=== PATIENT | female | born 1955 | race Caucasian/White ===

== ENCOUNTER 2022-05-22 07:48 | Day surgery (SDC) | payer MEDICARE, BC, SELFPAY ==
[2022-05-22] MEDS: ETHYL CHLORIDE 116 ML SPRAY 1 APPLIC TOPICAL (08:30)
[2022-05-22] MEDS: LACTATED RINGERS 1000 ML 1,000 ML 35 ML IV (08:30)
[2022-05-22] MEDS: SODIUM CHLORIDE 0.9 % (FLUSH) 10 ML SYRINGE IVF (08:30)
[2022-05-22 08:31] VITALS: BMI 41.3
[2022-05-22 08:34] VITALS: BP 131/80; PULSE 77; RESP 16; TEMP 36.1; O2SAT 96
[2022-05-22 08:50] LABS: Hemoglobin* 12.9 gm/dL (12.0-16.0)
[2022-05-22] MEDS: VASOPRESSIN 20 UNIT/ML INJ SUBCUT (10:27)
[2022-05-22] MEDS: KETOROLAC 15 MG/ML inj IVP (10:47)
[2022-05-22] MEDS: LIDOCAINE 1% 20 ML VIAL INJECTION (10:54)
[2022-05-22 11:07] VITALS: PULSE 78; RESP 16; TEMP 36.8; O2SAT 97
[2022-05-22 11:15] VITALS: BP 110/74; PULSE 67; RESP 16; O2SAT 94
[2022-05-22 11:30] VITALS: BP 118/69; PULSE 64; RESP 16; O2SAT 93
--- NOTE | 2022-05-22 11:30 | W.PM.GYNPROC ---
Procedure Note Date Seen: 05/22/22 Procedure Details: PREOPERATIVE DIAGNOSIS: Postmenopausal bleeding, suspected leiomyoma on recent ultrasound POSTOPERATIVE DIAGNOSIS: Postmenopausal bleeding, suspected leiomyoma on recent ultrasound PROCEDURE: Hysteroscopy, resection of submucous leiomyoma, resection of endometrial and endocervical polyps, dilation and curettage SURGEON: Gilma Salter MD ANESTHESIA: monitored anesthesia care IV FLUIDS: 700 mL crystalloid URINE OUTPUT: approximately 5 mL EBL: 20 mL SALINE DEFICIT: 545 mL FINDINGS: 1. Exam under anesthesia revealed a mobile, anteverted uterus without any palpable adnexal masses. 2. Upon hysteroscopy, survey of the cervix revealed a tiny polyp in the upper endocervix, which was removed. There were abundant tiny polyps in the lower part of the cervix that were not removed and appeared benign. There was a subcentimeter endometrial polyp near the left uterine cornua that was removed. There was a submucous fibroid in the right posterior mid uterine wall, approximately 2.5-3 cm in greatest dimension, FIGO Type 1. Endometrial stripe was otherwise thin in appearance. COMPLICATIONS:None PROCEDURE IN DETAIL: Patient was taken to the operating room with IV running. She was positioned in dorsal lithotomy position with her legs fully supported in Yellofin stirrups. Monitored anesthesia care was administered. She was prepped and draped in the usual sterile fashion. Exam under anesthesia was performed for the above-noted findings. Speculum was inserted. Cervix was injected along the anterior lip with a small amount of 1% lidocaine. Cervix was then grasped along the anterior lip with a single-tooth tenaculum. the cervix was injected with dilute vasopressin at 10, 2, 4, and 8 o'clock; Approximately 15 mL were used. Cervix was serially dilated to accommodate the TRUCLEAR hysteroscope, size to accomodate the larger dense tissue blade. This was assembled with saline inflow and outflow in place. The line was flushed of bubbles. The hysteroscope was advanced through the cervix into the endometrial cavity for the above noted findings. The dense tissue morcellator was then inserted through the operating channel. Window lock was performed. Under direct visualization, the submucous fibroid was removed. The endocervical polyp described above was also removed. The soft tissue mini blade was then used to circumferentially curette The endometrial cavity and remove the small endometrial polyp. The hysteroscope and morcellator were then removed from the uterus. Tenaculum was removed from the anterior lip of cervix. Hemostasis was observed for several minutes until bleeding was noted to be minimal. Patient tolerated procedure well. She was taken to recovery area in stable condition.
[2022-05-22 11:45] VITALS: BP 125/67; PULSE 60; RESP 16; O2SAT 94
[2022-05-22 12:00] VITALS: BP 118/70; PULSE 59; RESP 16; O2SAT 94
--- NOTE | 2022-05-22 13:09 | W.ANESCHARGE ---
Anesthesia Charges Start Date/Time Anesthesia Start Date: 05/22/22 Anesthesia Start Time: 09:54 Stop Date/Time Anesthesia Stop Date: 05/22/22 Anesthesia Stop Time: 11:08 Summary Emergency: No
--- NOTE | 2022-05-22 15:35 | W.ANESCHARGE ---
Anesthesia Charges Start Date/Time Anesthesia Start Date: 05/22/22 Anesthesia Start Time: 09:54 Stop Date/Time Anesthesia Stop Date: 05/22/22 Anesthesia Stop Time: 11:08 Summary Emergency: No
== END 2022-05-22 13:39 | disposition home or self-care (01) ==
PROVIDERS: PCP Family Medicine; Visit Provider Obstetrics & Gynecology
PROC: 0UDB8ZZ Extraction of Endometrium, Via Natural or Artificial Opening Endoscopic (ICD-10-PCS; CPT 58558; principal; 2022-05-22 09:30)
DX: N95.0 Postmenopausal bleeding (principal); D25.0 Submucous leiomyoma of uterus; N84.1 Polyp of cervix uteri
CPT/HCPCS: 58561; 00952; 36415; 82947; 85018; 86850; 86900; 86901; 88305; J1885; J2250; J2704; J3010; J7120

== ENCOUNTER 2023-01-29 06:06 | Day surgery (SDC) | payer MEDICARE, BC, SELFPAY ==
[2023-01-29 06:20] VITALS: BP 139/76; PULSE 83; RESP 16; TEMP 36; O2SAT 96
[2023-01-29 06:23] VITALS: BMI 42.3
[2023-01-29] MEDS: LACTATED RINGERS 1000 ML 1,000 ML 100 ML IV (06:35)
[2023-01-29] MEDS: SODIUM CHLORIDE 0.9 % (FLUSH) 10 ML SYRINGE IVF (06:35)
--- NOTE | 2023-01-29 06:49 | SUR.PREOP ---
HOME COVID NEGATIVE.
[2023-01-29 06:55] LABS: Hemoglobin* 12.9 gm/dL (12.0-16.0)
--- NOTE | 2023-01-29 07:06 | W.ANESCHARGE ---
Anesthesia Charges Start Date/Time Anesthesia Start Date: 01/29/23 Anesthesia Start Time: 07:23 Stop Date/Time Anesthesia Stop Date: 01/29/23 Anesthesia Stop Time: 08:08
[2023-01-29] MEDS: BUPIVACAINE 0.5% 30 ML INJECTION (07:54)
[2023-01-29 08:08] VITALS: BP 119/71; PULSE 86; RESP 12; TEMP 36.1; O2SAT 91
--- NOTE | 2023-01-29 08:08 | W.ANESCHARGE ---
Anesthesia Charges Start Date/Time Anesthesia Start Date: 01/29/23 Anesthesia Start Time: 07:23 Stop Date/Time Anesthesia Stop Date: 01/29/23 Anesthesia Stop Time: 08:08
[2023-01-29 08:15] VITALS: BP 128/78; PULSE 86; RESP 16; O2SAT 94
[2023-01-29 08:30] VITALS: BP 136/86; PULSE 75; RESP 16; O2SAT 93
[2023-01-29 08:45] VITALS: BP 125/68; PULSE 75; RESP 16; O2SAT 94
--- NOTE | 2023-01-29 13:33 | P.GYNPRC_ITS ---
Procedure Note Date Seen: 01/29/23 Procedure Details: Preop diagnosis: Postmenopausal bleeding Postop diagnosis: Postmenopausal bleeding Name of procedure: Hysteroscopy, dilation and curettage Surgeon: Daniel Duong Finish Saw Operator: None Complications: None EBL: 5mL Drains: None Findings: Cervix is flushed to vagina. Otherwise no gross lesion or abnormal discharge. Uterine sound 8cm. Intrauterine survey: posterior uterine structure that looks like a fibroid of about 3-4cm. Close to the right cornua there is a polypoid lesion. Visualization of the right cornua is impeded by what looks like an adhesion. Otherwise the endometrium looks atrophic w/o any other gross abnormalities. Dilation tract seen, evaluation of this extensively showed no evidence of perforation. Patient was taken to the OR were MAC anesthesia was administered without difficulty. She was placed in the dorsal lithotomy position with Herve type stirrups. Patient was then prepared and draped in the normal sterile fashion. A bivalved speculum was inserted in the posterior aspect of the vagina. 0.5% Marcaine was injected at 2 and 11 o'clock a total of about 8mL utilized. A single-tooth tenaculum was used to grasp the anterior lip of the cervix. The uterus was carefully sounded to 8 cm. The cervical os was sequentially dilated to accommodate the 5 mm TrueClear hysteroscope using Hegar dilators. A 5 mm 30 degree TrueClear hysteroscope was introduced under direct visualization, and the uterus was distended with normal saline. Findings as above. Soft tissue incisor blade from TrueClear hysteroscope system was introduced under direct visualization and endometrial curettings performed with removal of polypoid lesion. Hysteroscope removed under direct visualization. Sharp curettings also performed. Tenaculum was removed from the cervix and good hemostasis was noted at puncture sites. Patient tolerated the procedure well. Instrument and sponge counts were correct x2. The patient was awakened from MAC anesthesia and taken to the recovery room in a stable condition. The patient will go home after recovering from anesthesia and meeting all the criteria for discharge. She was given instruction regarding follow-up visit in 2 weeks at [facility] and instructions for pain medication. Fluid deficit: 650mL
== END 2023-01-29 08:56 | disposition home or self-care (01) ==
PROVIDERS: PCP Family Medicine; Visit Provider Obstetrics & Gynecology
PROC: 0UDB8ZZ Extraction of Endometrium, Via Natural or Artificial Opening Endoscopic (ICD-10-PCS; CPT 58558; principal; 2023-01-29 07:15)
DX: N95.0 Postmenopausal bleeding (principal)
CPT/HCPCS: 58558; 00952; 36415; 82962; 85018; 88305; J1885; J2250; J2405; J2704; J3010; J3490; J7120

== ENCOUNTER 2023-07-02 08:48 | Day surgery (SDC) | payer MEDICARE, BC, SELFPAY ==
[2023-07-02] VITALS (23 sets, daily range): BP systolic 108–153; BP diastolic 68–81; PULSE 79–91; RESP 12–16; TEMP 36.1–36.6; O2SAT 91–99; BMI 40.1
[2023-07-02] MEDS: LACTATED RINGERS 1000 ML 1,000 ML 100 ML IV ×3 (08:50→16:21)
[2023-07-02] MEDS: SODIUM CHLORIDE 0.9 % (FLUSH) 10 ML SYRINGE IVF (09:15)
[2023-07-02 09:24] LABS: Hemoglobin* 13.6 gm/dL (12.0-16.0)
[2023-07-02 09:37] LABS: Creatinine* 0.7 mg/dL (0.5-1.5); Est. Creatinine Clearance* 51.11; Estimated Glomerular Filt Rate 95 ml/min
[2023-07-02] MEDS: SCOPOLAMINE 1 MG/3 DAY PATCH 1 PATCH TRANSDERMA (11:14)
[2023-07-02] MEDS: CEFAZOLIN 1 GM inj 3 GM IVP (12:00)
[2023-07-02] MEDS: VASOPRESSIN 20 UNIT/ML INJ INJECTION (12:31)
--- NOTE | 2023-07-02 13:04 | W.ANESCHARGE ---
Anesthesia Charges Start Date/Time Anesthesia Start Date: 07/02/23 Anesthesia Start Time: 11:56 Stop Date/Time Anesthesia Stop Date: 07/02/23 Anesthesia Stop Time: 17:55
--- NOTE | 2023-07-02 13:12 | W.ANESCHARGE ---
Anesthesia Charges Start Date/Time Anesthesia Start Date: 07/02/23 Anesthesia Start Time: 11:56 Stop Date/Time Anesthesia Stop Date: 07/02/23
[2023-07-02] MEDS: BUPIVACAINE 0.25% 30 ML INJECTION (15:00)
--- NOTE | 2023-07-02 15:13 | PM.GSPRC ---
Operative Note Pre-op diagnosis: Abnormal uterine bleeding Post-op diagnosis: Same Type of Procedure: Intraoperative consultation Indications: I was asked for intraoperative consultation well the procedure was underway by Dr. Salter, please see her note for indications regarding the procedure an operative intervention. Procedure Description: When I entered the operating room ports were in place and the abdomen was insufflated. There were 2 small (2-5 mm) hemangiomas on the surface of the small bowel. These were not bleeding. They were not infiltrative on appearance with no concern for cancer. The abdomen was briefly surveyed with no other abnormal lesions identified. The omentum was normal in appearance. The liver was surveyed and free of concerning lesions. At this time I did not recommend biopsy of the lesions, as they were consistent with a benign hemangioma. No concern for malignancy at this time. Dr. Salter and Marquise then proceeded with the case and I left the operating room. They did take several pictures of the lesion for documentation. Findings: 2 small, nonbleeding hemangiomas on service of small bowel. Incidental finding. Anesthesia: GETA Surgeon: Randee Umanzor MD Estimated blood loss (mL): 0 Condition: stable Disposition: other (Operating room)
[2023-07-02] MEDS: CEFAZOLIN 2 GM INJ IVP (15:50)
--- NOTE | 2023-07-02 17:50 | P.GYNPRC_ITS ---
Procedure Note Date of procedure: 07/02/23 Pre-op diagnosis: Recurrent postmenopausal bleeding Post-op diagnosis: same Procedure: Total vaginal hysterectomy, laparoscopic bilateral salpingo-oophorectomy and closure of vaginal cuff. Intraoperative consult to general surgery for evaluation of small bowel lesions, evaluation of sigmoid colon/rectum integrity, cystoscopy. Anesthesia: regional (Converted to GETA for laparoscopy) Complications: None Surgeon: Daniel Duong MD floor covering printer assistant: Anahi Salter MD Estimated blood loss (mL): 400 Urine Output (mL): 100 Pathology: specimen obtained, sent to pathology Condition: stable Disposition: floor Findings: Bimanual exam: Small cervix flushed to vagina with descent to the mid vagina. Grossly normal uterus. Intra abdominal survey: Grossly normal fallopian tubes and ovaries. Small bowel with 2-3 lesions that looked like hemangiomas (see general surgery note for further description). Grossly normal diaphragm, liver, small intestine. Suture present at the bilateral pelvis sidewall from vaginal surgery. Separation of peritoneum exposing fatty tissue from the left perirectal space and an area closer to the rectum (these 2 areas were thoroughly evaluated by general surgery, please refer to this note for further details.) Procedure Description: Patient was taken to the operating room with IV running. She received cefazolin as preoperative prophylaxis. Spinal anesthesia obtained without difficulty. Patient was then placed in the dorsal lithotomy position with her legs fully supported in Yellow fin stirrups. She was prepped and draped in the usual sterile fashion. Iraheta catheter was inserted. Exam under anesthesia revealed the above-noted findings. Weighted speculum inserted to the posterior vagina as well as a Brenda retractor anteriorly and cervix identified. Cervix visualized and grasped along the anterior lip with a tenaculum. 1% plain lidocaine injected at the anterior cervix. The anterior and posterior lips of the cervix were grasped with thyroid Kin clamps. The cervicovaginal junction was infiltrated with a total of 30 mL of dilute vasopressin. Cervicovaginal junction was incised with the scalpel circumferentially. The vaginal epithelium was dissected off the uterosacral ligaments with a combination of blunt and sharp dissection bilaterally. Posterior colpotomy was performed sharply and a long weighted speculum was placed in the cul-de-sac. Dissection plane anteriorly was identified to be too deep into the uterine serosa and with reposition of an Allis clamp between the vagina mucosa and the uterine serosa the correct plane was then identified and grasped with pickups and the peritoneum opened with Metzenbaum scissors. A Brenda was then placed between the uterus and bladder. Bilateral uterosacral ligaments were clamped, cut, and suture ligated, and tagged for later identification. The cardinal and portion of the broad ligament bilaterally were clamped, cut, and suture ligated. Same procedure performed for the remainder of the broad ligament bilaterally. The bilateral cornual ends of the uterus were then isolated, clamped, cut and suture ligated. This freed the uterus from its attachments and it was delivered through the vagina. Deeper Trendelenburg position obtained a moist packing introduced vaginally but we were unable to identify fallopian tubes and ovaries. Brisk bleeding noted from the vaginal edges on the corners and utilizing Vicryl 0 suture the peritoneum was grasped and attached to the vaginal mucosa edges this was continued in an interlocking fashion starting from the right corner medially to add the posterior vaginal mucosa edge until the left corner of incision. This did slow down brisk bleeding , but we were concerned about some slow red oozing that continued and we were unable to tell if it was coming from the anterior vagina mucosa edge or if it was deeper at the level of a pedicle and decision was made to proceed with evaluation with laparoscopy. The vagina was then packed and the OR room prepared for laparoscopic surgery. Anesthesia proceeded to obtain general anesthesia w/o difficulty. Draping removed, the abdomen cleansed and prepped in the usual sterile manner. All providers scrubbed in for surgery also changed to new sterile gloves and gowns. The inferior aspect of the umbilical fold was injected with 1% Lidocaine plain. A 5 mm vertical incision was then made within the umbilical fold using a scalpel. A direct entry technique was used with a 5 mm laparoscopic port with CO2 gas set at 5mmHg was introduced under direct visualization. The trocar was removed leaving the sleeve in place. The CO2 gas flow was turned to high flow to achieve pneumoperitoneum. The 5 mm laparoscope was used then to carefully inspect the abdomen and pelvis with findings noted above. Pictures were taken for documentation purposes. The patient was placed in Trendelenburg positioning. Two additional ports were placed in the right and left lower quadrants under direct visualization after first anesthetizing the skin and fascia. Resection sites from vaginal surgery were found to be hemostatic. Serosal small intestine lesions identified and intraoperative general surgery consult obtained. Please refer to Dr. Umanzor's note for additional details. Dr. Umanzor was also asked to evaluate findings on the perirectal space, possibly over rectum, please refer to her notes for additional details. Decision was made to complete bilateral salpingo oophorectomy at this time. The left tube and ovary were elevated with a graspers. The Thunderbeat device was used to dissect the ovary from the infundibulopelvic ligament and the tube from it's broad ligament attachments and then placed in the cul de sac for vaginal removal. Excellent hemostasis was obtained. Same procedure performed on the right ovary and tube, excellent hemostasis obtained. Both ovaries and fallopian tubes where then removed vaginally. Decision was made to close the vaginal cuff laparoscopically. The left abdominal 5mm port incision was extended to accommodate a 11mm port and an additional 5mm port was inserted at the level of the umbilicus towards the left of the abdomen was also introduced under direct visualization. The vaginal cuff was reapproximated in a running fashion with a V-Loc suture starting from the right side and running across to the left and then back to the midline where the suture was cut flush with the tissues. The pelvis was copiously irrigated and hemostasis visualized. Preparations were then made for cystoscopy. Fluorescein was administered intravenously along with the IV fluids. The Iraheta catheter was removed. The patient was flattened out. Cystoscopy was performed using sterile normal saline as distending medium. The bladder was carefully inspected and noted to be free of filling defects or suture material. Both ureteral orifices were easily visualized and fluorescein tinged urine jets were noted from both sides. The cystoscope was then removed. The Iraheta catheter was replaced into the bladder. Attention was once again turned to the abdomen. The abdomen and pelvis were again irrigated and inspected for hemostasis. Joanna sprayed over resection sites for further hemostasis. Attention was then placed to the 11mm port site and under direct visualization using a Moy-Elmer system the fascia was closed with Vicryl 0. All instruments were then removed under direct visualization. Pneumoperitoneum was allowed to escape. The skin at all port sites was closed in a subcuticular fashion with 4-0 Monocryl. LiquiBand was then placed over the incisions. The patient tolerated the procedure well. Sponge, lap, needle, and instrument counts were reported as correct x2. The patient was taken to the recovery room awake and in stable condition. She did receive 3 g of IV Ancef preoperatively and a second dose at the 4 hour ilana of surgery. PATHOLOGY SPECIMEN(S): Uterus, bilateral fallopian tubes and ovaries.
--- NOTE | 2023-07-02 18:00 | W.ANESCHARGE ---
Anesthesia Charges Start Date/Time Anesthesia Start Date: 07/02/23 Anesthesia Start Time: 11:56 Stop Date/Time Anesthesia Stop Date: 07/02/23 Anesthesia Stop Time: 17:55
--- NOTE | 2023-07-02 19:36 | PC.NURSE ---
shift note: pt to floor from pacu @ 1830 via bed. pt drowsy. lap site x4 c/d/i open to air. pt has damián pad in place that is clean. LS clr. pt placed on vss protocol post sx. pt states pain 0-2/[address] in place and patent . IV patent
[2023-07-02] MEDS: KETOROLAC 30 MG/ML inj IVP (22:19)
[2023-07-02] MEDS: glipiZIDE 5 MG TABLET 10 MG PO (22:20)
[2023-07-02] MEDS: cloNIDine HCL 0.1 MG TABLET PO (22:20)
[2023-07-02] MEDS: METFORMIN 1,000 MG TABLET 1000 MG PO (22:21)
[2023-07-03] VITALS (15 sets, daily range): BP systolic 103–113; BP diastolic 55–85; PULSE 74–89; RESP 16–18; TEMP 36.1–36.6; O2SAT 93–95
[2023-07-03] MEDS: LACTATED RINGERS 1000 ML 1,000 ML 100 ML IV (00:58)
[2023-07-03] MEDS: KETOROLAC 30 MG/ML inj IVP (03:41)
[2023-07-03 06:41] LABS: Hemoglobin* 12.1 gm/dL (12.0-16.0)
--- NOTE | 2023-07-03 06:45 | PC.NURSE ---
Shift note: Pt is alert, Oriented, and cooperate with treatment and care. Pt has been on oxygen through nasal canula titrated from 3 to 0.5 based of the O2 level. No bleeding per vaginal noted, dressing sites appeared clean and dry. Ice pack applied. Pain rated between 2 and 4. Iraheta which was patent was removed at 0620. Pt is doing well ambulating with A1, walker and GB through hallway. Saline locked at 0620. Pt was given putin and progressed to toast, appeared to tolerated very well. No BM and gas passed.
[2023-07-03 06:59] LABS: Creatinine* 0.8 mg/dL (0.5-1.5); Est. Creatinine Clearance* 51.11; Estimated Glomerular Filt Rate 81 ml/min
[2023-07-03] MEDS: glipiZIDE 5 MG TABLET 10 MG PO (08:31)
[2023-07-03] MEDS: METFORMIN 1,000 MG TABLET 1000 MG PO (08:32)
[2023-07-03] MEDS: lisinopriL 20 MG TABLET PO (08:32)
[2023-07-03] MEDS: cloNIDine HCL 0.1 MG TABLET PO (08:32)
[2023-07-03] MEDS: hydroCHLOROthiazide 25 MG TABLET PO (08:32)
[2023-07-03] MEDS: VENLAFAXINE HCL 37.5 MG TABLET PO (08:54)
--- NOTE | 2023-07-03 09:38 | P.DS_ITS ---
DS: Providers Provider Time Seen by Provider: 08:30 Date Seen: 07/03/23 Date of admission: 07/02/23 Primary care physician: Thalia Blunt MD Admitting Clinician: Daniel Duong MD Attending Physician on discharge: Keysha Duong MD Date of Discharge: 07/03/23 DS: Diagnosis Discharge Diagnosis (1) S/P hysterectomy: Status: Acute Problem details: Total vaginal hysterectomy, laparoscopic bilateral salpingo-oophorectomy, cystoscopy. 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 Indication for surgery: Recurrent post menopausal bleeding. Intraoperative findings were notable for grossly normal uterus, bilateral fallopian tubes and ovaries. She had an uncomplicated surgery. Postoperative course has been uneventful. Vitals have been stable. She has remained afebrile. Today, on postoperative day 1, she reports the pain is well controlled. She has been able to ambulate Without difficulty. She is tolerating regular diet. She is passing flatus. Iraheta catheter has been removed, and she is voiding without difficulty. Time Spent with Patient Time attestation: Total time spent providing and/or coordinating discharge services: Time spent: Less than 30 minutes PUMPING SUPERVISOR - Exam Physical Exam: Vital signs: Temp Pulse Resp BP Pulse Ox O2 Del Method O2 Flow Rate 97 F L 74 18 113/85 95 Room Air 1 07/03/23 03:00 07/03/23 07:00 07/03/23 08:01 07/03/23 07:00 07/03/23 07:00 07/03/23 07:00 07/03/23 03:00 Narrative: VITAL SIGNS: As noted above. GENERAL APPEARANCE: Alert, cooperative female in no acute distress. MOOD & AFFECT: Normal. ABDOMEN: Soft, non-distended and appropriately tender. Incision sites healing well, no surrounding erythema, induration or abnormal discharge. : Minimal spotting. EXTREMITIES: Nonedematous. Well perfused. Nontender. PUMPING SUPERVISOR - DS: Data Data Completed and Pending Labs on day of discharge: Labs from last 24 hours 07/03/23 07/02/23 06:25 09:16 Hgb 12.1 Creatinine 0.8 0.7 Estimated Creat Clear 51.11 51.11 Estimated GFR 81 95 Blood Type B Positive Antibody Screen NEGATIVE Procedures Procedures: Procedures Operation Date: 07/02/23 11:25 Actual Procedure Side Surgeon p Total Vaginal Hysterectomy, laparoscopic Bilateral Salpingo-Oophorectomy, intraoperative consult and proctoscopy Keysha Duong MD Discharge Plan Discharge Disposition: Home, Self-Care Discharging Surgeon: Keysha Duong Follow-Up Appointment: 2 weeks at [facility] Prescriptions: New oxycodone 5 mg Tablet 5 mg PO Q4H PRN (Reason: Moderate Pain) Qty: 15 0RF ibuprofen 600 mg Tablet 600 mg PO Q6H Qty: 30 0RF Continued atorvastatin 20 mg tablet 20 mg PO HS Patient Comments: Take 1 Tablet (20 mg) by mouth once daily with evening meal clonidine HCl 0.1 mg tablet 0.1 mg PO BID Patient Comments: TAKE ONE TABLET BY MOUTH TWICE DAILY glipizide 10 mg tablet 10 mg PO BID Patient Comments: TWICE DAILY BEFORE MEALS metformin 500 mg tablet extended release 24 hr 1,000 mg PO BIDWMEAL lisinopril-hydrochlorothiazide 20-25 mg tablet 1 tab PO DAILY venlafaxine 37.5 mg capsule,extended release 24hr 37.5 mg PO .dailywithmeal fexofenadine [Bernarda Allergy] 180 mg tablet 180 mg PO DAILY Ozempic 0.25 mg or 0.5 mg(2 mg/1.5 mL) pen injector 1 mg subcut QWEEK Rx Instructions: for 4 doses multivitamin,tx-minerals Tablet 1 tab PO DAILY atorvastatin 40 mg tablet 40 mg PO HS albuterol sulfate 90 mcg/actuation HFA aerosol inhaler 1 - 2 inh inhalation Q4H PRN Activity Level: Activity as Tolerated Activity Detail: No heavy lifting-more than 15-20 pounds for 6 weeks Discharge Diet: Diabetic Patient Instructions: Surgical Site Infections (DC) Forms: Work/School Release Follow-up: Thalia Blunt MD [Primary Care Provider] - Discharge Orders: Discharge Order (Routine); Ordered 07/03/23 Ordered By: Keysha Duong
--- NOTE | 2023-07-03 09:51 | PM.GSPN ---
Subjective Subjective Date Seen: 07/03/23 Interval history: Patient doing well this morning. Abdominal pain being managed with pain meds. Tolerating a diet and passing gas. Ready to go home. Exam Narrative: Exam Narrative: Gen: alert and oriented, lying comfortably in bed ABdomen: soft, appropriately tender over incisions with dermabond in place. No distension, guarding or rebound. Const: Vital Signs, click to edit/add: Vital Signs - 24 hr 07/02/23 17:50 07/02/23 17:55 07/02/23 18:00 Temperature 97.5 F L Pulse Rate 88 87 85 Pulse Rate [Pulse Oximeter] Respiratory Rate 16 14 14 Blood Pressure 153/78 H 140/81 H 142/79 H Blood Pressure [Ri ght Arm] Pulse Oximetry 99 97 98 Oxygen Delivery Me thod OxyMask Oxygen Flow Rate 10 07/02/23 18:05 07/02/23 18:10 07/02/23 18:15 Temperature Pulse Rate 85 81 83 Pulse Rate [Pulse Oximeter] Respiratory Rate 12 12 12 Blood Pressure 148/75 H 138/79 140/80 H Blood Pressure [Ri ght Arm] Pulse Oximetry 95 93 95 Oxygen Delivery Me thod Nasal Cannula Oxygen Flow Rate 3 4 07/02/23 18:20 07/02/23 18:30 07/02/23 18:30 Temperature 97.6 F 97.6 F Pulse Rate 82 Pulse Rate [Pulse Oximeter] 82 Respiratory Rate 13 14 14 Blood Pressure 138/81 Blood Pressure [Ri ght Arm] 138/76 Pulse Oximetry 94 91 Oxygen Delivery Me thod Room Air Oxygen Flow Rate 07/02/23 18:30 07/02/23 18:30 07/02/23 18:45 Temperature 97.6 F 97.6 F 97.8 F Pulse Rate 82 Pulse Rate [Pulse Oximeter] 82 87 Respiratory Rate 14 14 16 Blood Pressure Blood Pressure [Ri ght Arm] 138/76 138/76 135/75 Pulse Oximetry 91 94 Oxygen Delivery Me thod Nasal Cannula Nasal Cannula Nasal Cannula Oxygen Flow Rate 3 0 3 07/02/23 19:00 07/02/23 19:01 07/02/23 19:15 Temperature 97 F L 97 F L Pulse Rate Pulse Rate [Pulse Oximeter] 88 87 Respiratory Rate 16 16 16 Blood Pressure Blood Pressure [Ri ght Arm] 135/73 126/68 Pulse Oximetry 94 94 Oxygen Delivery Me thod Nasal Cannula Nasal Cannula Oxygen Flow Rate 3 3 07/02/23 19:30 07/02/23 20:00 07/02/23 20:30 Temperature 97.2 F L 97.2 F L 97.2 F L Pulse Rate Pulse Rate [Pulse Oximeter] 87 87 91 Respiratory Rate 16 16 16 Blood Pressure Blood Pressure [Ri ght Arm] 136/68 131/73 126/75 Pulse Oximetry 93 93 93 Oxygen Delivery Me thod Nasal Cannula Nasal Cannula Nasal Cannula Oxygen Flow Rate 3 3 3 07/02/23 21:00 07/02/23 21:01 07/02/23 22:00 Temperature 97.1 F L 97.2 F L Pulse Rate Pulse Rate [Pulse Oximeter] 89 83 Respiratory Rate 16 16 16 Blood Pressure Blood Pressure [Ri ght Arm] 128/69 138/72 Pulse Oximetry 94 91 Oxygen Delivery Me thod Nasal Cannula Nasal Cannula Oxygen Flow Rate 3 4 07/02/23 22:01 07/02/23 23:00 07/02/23 23:00 Temperature 97.4 F L 97.4 F L Pulse Rate Pulse Rate [Pulse Oximeter] 83 83 Respiratory Rate 16 16 16 Blood Pressure Blood Pressure [Ri ght Arm] 108/73 108/73 Pulse Oximetry 94 94 Oxygen Delivery Me thod Nasal Cannula Nasal Cannula Oxygen Flow Rate 1 1 07/02/23 23:01 07/03/23 00:00 07/03/23 00:01 Temperature 97.2 F L Pulse Rate Pulse Rate [Pulse Oximeter] 89 Respiratory Rate 16 16 16 Blood Pressure Blood Pressure [Ri ght Arm] 103/66 Pulse Oximetry 94 Oxygen Delivery Me thod Nasal Cannula Oxygen Flow Rate 1 07/03/23 01:01 07/03/23 02:01 07/03/23 03:00 Temperature 97 F L Pulse Rate Pulse Rate [Pulse Oximeter] 77 Respiratory Rate 16 16 16 Blood Pressure Blood Pressure [Ri ght Arm] 108/55 L Pulse Oximetry 93 Oxygen Delivery Me thod Nasal Cannula Oxygen Flow Rate 1 07/03/23 03:01 07/03/23 05:01 07/03/23 06:01 Temperature Pulse Rate Pulse Rate [Pulse Oximeter] Respiratory Rate 16 16 16 Blood Pressure Blood Pressure [Ri ght Arm] Pulse Oximetry Oxygen Delivery Me thod Oxygen Flow Rate 07/03/23 07:00 07/03/23 07:01 07/03/23 08:01 Temperature Pulse Rate Pulse Rate [Pulse Oximeter] 74 Respiratory Rate 18 18 18 Blood Pressure Blood Pressure [Ri ght Arm] 113/85 Pulse Oximetry 95 Oxygen Delivery Me thod Room Air Oxygen Flow Rate Progress Note: A&P Assessment and plan (1) S/P hysterectomy: Problem details: Total vaginal hysterectomy, laparoscopic bilateral salpingo-oophorectomy, cystoscopy. Status: Acute Assessment and Plan: Patient is POD1 hysterectomy with BSO. I was asked to see the patient intraoperatively. Evidence of small laceration of the peritoneum overlying the rectum, with no rectal injury identified. Doing well post op with no concerns. Ok to discharge from General Surgery perspective with no need for follow up in Surgery clinic.
[2023-07-03] MEDS: IBUPROFEN 600 MG TABLET PO (11:09)
--- NOTE | 2023-07-03 11:38 | PC.NURSE ---
Nursing Care Hours: [id number] Pt this shift calm and cooperative with cares, alert and oriented. Denies SOB, chest pain, headache. Abdomen color WNL, lap sites open to air with surgical glue. No SS of infection or complication. Voiding in toilet. Eating and drinking, denies nausea. Pain rated 4/10, treated per eMAR. Using IS independently QH, VSS, 95% on RA. Discharge instructions discussed with pt and spouse, all questions and concerns addressed. Wheeled out to front door, pt ambulated with spouse to vehicle in stable condition.
== END 2023-07-03 11:10 | disposition home or self-care (01) ==
LOC: OR 08:48 → MEDSURG 08:50
PROVIDERS: PCP Family Medicine; Visit Provider Obstetrics & Gynecology
PROC: 0TJB8ZZ Inspection of Bladder, Via Natural or Artificial Opening Endoscopic (ICD-10-PCS; CPT 57260; principal; 2023-07-02 11:15)
DX: N95.0 Postmenopausal bleeding (principal); D18.03 Hemangioma of intra-abdominal structures
CPT/HCPCS: 58260; 58661; 36415; 82565; 82962; 840; 85018; 86850; 86900; 86901; 88307; 944; A9270; J0665; J0690; J1200; J1885; J2250; J2274; J2405; J2704; J3010; J3490; J7120